=== PATIENT | male | born 1935 | race Caucasian/White ===

== ENCOUNTER 2020-08-11 09:15 | Emergency (ER) | payer OTHER, SELFPAY ==
--- NOTE | ~2020-08-11 | XR_ITS ---
EXAMINATION: XR shoulder RT min 2V INDICATION: Right shoulder pain TECHNIQUE: Five views of the right shoulder are submitted. COMPARISON: None FINDINGS: Normal alignment. No fracture. 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 Soft tissues are unremarkable. IMPRESSION: 1. No acute osseous abnormality. Reviewed, dictated and finalized at location A.
[2020-08-11 09:33] VITALS: BP 138/61; PULSE 72; RESP 14; TEMP 37.1; O2SAT 96
--- NOTE | 2020-08-11 10:03 | ED.GENADULT ---
HPI - General Adult General Chief complaint: Extremity Problem,Nontraumatic Stated complaint: right shoulder pain Time Seen by Provider: 08/11/20 09:30 Source: patient and RN notes reviewed Mode of arrival: ambulatory Limitations: no limitations History of Present Illness HPI narrative: 84-year-old male presents with complaints of right shoulder pain for the past 3-4 weeks. Neville reports increasing pain over the past 24 hours. Hydrocodone 5 mg without relief. Neville reports receiving hydrocodone per primary MD after treatment on 07/17/20. Denies numbness or tingling. No known injury. Hurts with movement of shoulder. Denies radiating pain. No loss of mobility. No swelling. Exacerbating factor is movement. No relieving factors. The dominant hand is the RIGHT HAND. No high fevers. Remains active. The patient reports he have not been diagnosed with COVID-19. The patient reports he is not waiting for the results of a COVID-19 lab test. The patient reports he do not have chills, weakness, or fatigue. The patient reports he do not have a new or worsening cough or shortness of breath. Denies chest pain. The patient reports he do not have any rhinorrhea, congestion, loss of taste or smell, sore throat, nausea, vomiting, abdominal pain, and diarrhea. Tolerating po intake well. Denies recent traveling. Denies concerns for COVID-19 or exposures been home with limited outdoor exposure except for essential household needs and return home. At this time, patient is not suspected of having COVID-19. Some parts of this dictation were generated by voice recognition software and may contain typographical and/or grammatical inaccuracies. Related Data Home Medications Medication Instructions Recorded Confirmed aspirin 81 mg tablet,delayed 81 mg PO DAILY 05/12/19 08/11/20 release Allergies Allergy/AdvReac Type Severity Reaction Status Date / Time No Known Allergies Allergy Unknown Verified 08/11/20 10:00 Review of Systems Review of Systems: Narrative: CONSTITUTIONAL: Denies fever, chills, sweats. EYES: Denies visual changes, redness, discharge. ENT: Denies rhinorrhea, congestion, sore throat, otalgia. CARDIOVASCULAR: Denies chest pain, palpitations, edema. RESPIRATORY: Denies dyspnea, wheezing, cough. GASTROINTESTINAL: Denies abdominal pain, nausea, vomiting, diarrhea. SKIN: Denies rash or itching. MUSCULOSKELETAL: Denies acute back pain or myalgia. Complains of RT shoulder pain. NEUROLOGIC: Denies numbness or focal weakness. PSYCHIATRIC: Denies anxiety or depression. All other systems reviewed & are unremarkable except as noted in HPI and below. [facility] Past Medical History Medical History (Updated 08/12/20 @ 00:00 by Bryant Nunez) Diabetes FH: total knee replacement Hyperbilirubinemia Hypertension Low vitamin B12 level Low vitamin D level Surgical History Surgical History History of tonsillectomy Family History Family History Mother Diabetes mellitus Father Family history of malignant neoplasm Social History Social History (Updated 08/17/20 @ 21:54 by LUISITO Pascual) Smoking packs per day: 1 Smoking cigarettes per day: 20.0 Years smoked: 33 Smoking pack-years: 33.00 Smoking status: Former smoker Tobacco type: cigarettes Second hand tobacco smoke exposure: No Smoking end date: 09/15/1960 Alcohol intake: current Drinks per week: 1 Substance use: never Living arrangements: with family Occupation/Education: retired Gender identity (if verbalized by the patient): Male Sexual Orientation (if Verbalized by the Patient): Straight or Heterosexual Comments At time of signature, agree with nurse past medical, surgical, social, and family history. There is no relevant patient or family history pertinent to the presenting complaint. Exam Narrat
== END 2020-08-11 10:35 | disposition home or self-care (01) ==
PROVIDERS: Emergency Provider Nurse Practitioner Family; PCP Family Medicine
DX: M25.511 Pain in right shoulder (principal); Z87.891 Personal history of nicotine dependence; E11.9 Type 2 diabetes mellitus without complications; I10 Essential (primary) hypertension; Z96.653 Presence of artificial knee joint, bilateral; E78.00 Pure hypercholesterolemia, unspecified
CPT/HCPCS: 73030; 99213; G0463

== ENCOUNTER 2020-08-21 12:34 | Emergency (ER) | payer OTHER, SELFPAY ==
--- NOTE | 2020-08-21 12:36 | ED.GENADULT ---
HPI - General Adult General Chief complaint: Ear Stated complaint: Eaer pain Time Seen by Provider: 08/21/20 12:36 Source: patient Mode of arrival: ambulatory Limitations: no limitations History of Present Illness HPI narrative: 84-year-old male patient presents to the [facility] with complaints of earwax. Patient states he went to go and get his hearing aids looked at today and was told that he had earwax in both ears. Patient denies any pain to the ears. Denies any drainage coming from the ears. Related Data Home Medications Medication Instructions Recorded Confirmed aspirin 81 mg tablet,delayed 81 mg PO DAILY 05/12/19 08/21/20 release Allergies Allergy/AdvReac Type Severity Reaction Status Date / Time No Known Allergies Allergy Unknown Verified 08/11/20 10:00 Review of Systems Review of Systems: Narrative: CONSTITUTIONAL: Denies fever, chills, or sweats. EYES: Denies visual changes, redness, or discharge. ENT: Denies rhinorrhea, congestion, sore throat, or otalgia. Positive earwax to bilateral ears CARDIOVASCULAR: Denies chest pain, palpitations, or edema. RESPIRATORY: Denies cough or dyspnea. GASTROINTESTINAL: Denies abdominal pain, nausea, vomiting, or diarrhea. GENITOURINARY: Denies dysuria or hematuria. SKIN: Denies rash or itching. MUSCULOSKELETAL: Denies back pain, joint pain, or myalgia. NEUROLOGIC: Denies headache, numbness, or weakness. PSYCHIATRIC: Denies anxiety or depression. [facility] Past Medical History Medical History Diabetes FH: total knee replacement Hyperbilirubinemia Hypertension Low vitamin B12 level Low vitamin D level Surgical History Surgical History History of tonsillectomy Family History Family History Mother Diabetes mellitus Father Family history of malignant neoplasm Social History Social History Smoking packs per day: 1 Smoking cigarettes per day: 20.0 Years smoked: 33 Smoking pack-years: 33.00 Smoking status: Former smoker Tobacco type: cigarettes Second hand tobacco smoke exposure: No Smoking end date: 09/15/1960 Alcohol intake: current Drinks per week: 1 Substance use: never Gender identity (if verbalized by the patient): Male Comments At the time of my signature I agree with nursing past medical history, surgical, social, and family history. There is no relevant family history pertinent to the presenting complaint. Exam Narrative: Exam Narrative: GENERAL: Well-appearing, well-nourished, and in no acute distress. HEAD: Normocephalic, atraumatic. EYES: PERRLA and EOMI. ENT: Nares clear, no rhinorrhea or epistaxis. Mucous membranes moist. Patient does have some impacted cerumen noted to the right ear however the left ear is clear and able to see the TM fine. The TM does not have any erythema there is no foreign bodies to the canal. NECK: Supple. No lymphadenopathy CHEST: Clear to auscultation. No respiratory distress. HEART: Regular rate and rhythm. No murmur heard. Normal peripheral pulses. ABDOMEN: Soft, nontender, nondistended, normal active bowel sounds. EXTREMITIES: Normal range of motion. No edema. SKIN: Warm, dry, no rash. NEURO: No focal deficits. Alert and oriented x3. Course Vital Signs Vital signs: Vital Signs Temperature 36.6 C 08/21/20 12:39 Pulse Rate 73 08/21/20 12:39 Respiratory Rate 18 08/21/20 12:39 Blood Pressure 134/61 08/21/20 12:39 Pulse Oximetry 97 08/21/20 12:39 Temperature 36.6 C 08/21/20 12:39 Pulse Rate 73 08/21/20 12:39 Respiratory Rate 18 08/21/20 12:39 Blood Pressure 134/61 08/21/20 12:39 Pulse Oximetry 97 08/21/20 12:39 Vital signs reviewed Procedures Ear Wax Removal Right Ear: Ear Wax Removal Date: 08/21/20 Ear Wax Rem
[2020-08-21 12:39] VITALS: BP 134/61; PULSE 73; RESP 18; TEMP 36.6; O2SAT 97
== END 2020-08-21 13:03 | disposition home or self-care (01) ==
PROVIDERS: Emergency Provider Nurse Practitioner Family; PCP Family Medicine
DX: H61.21 Impacted cerumen, right ear (principal); T16.1XXA Foreign body in right ear, initial encounter; Z87.891 Personal history of nicotine dependence; E11.9 Type 2 diabetes mellitus without complications; I10 Essential (primary) hypertension; Z79.82 Long term (current) use of aspirin
CPT/HCPCS: 69210; 69200; 99213; G0463

== ENCOUNTER 2021-02-10 09:17 | Emergency (ER) | payer OTHER, SELFPAY ==
--- NOTE | ~2021-02-10 | XR_ITS ---
EXAMINATION: XR foot LT min 3V EXAM DATE: 02/10/2021 09:54 INDICATION: Bumped On Bed X 1-2 Wks. Ago. Lower Leg Pain. . Initial encounter. TECHNIQUE: Left foot dorsoplantar, lateral and oblique projections obtained and reviewed. There is n o prior study for comparison. FINDINGS: Left metatarsal bones unremarkable. There are no acute fractures or dislocations identifi ed. There is no subcutaneous gas. Some vascular calcifications. Small inferior calcaneal spur. Mild polyarticular primary osteoarthritis. There are no radiopaque foreign bodies. IMPRESSION: Chronic left foot findings as above. Reviewed, dictated and finalized at location A.
--- NOTE | ~2021-02-10 | XR_ITS ---
EXAMINATION: XR tibia fibula LT 2V EXAM DATE: 02/10/2021 09:54 INDICATION: Bumped On Bed 1-2 Wks Ago. Lower Leg Pain. Initial encounter. TECHNIQUE: Left tibia/fibula frontal and lateral projections obtained and reviewed. There is no prio r study for comparison. FINDINGS: Left tibial and fibular shafts unremarkable. Mild vascular calcifications. There is left knee arthroplasty intact. Tibia and fibula are unremarkable. Mild scattered arterial sclerosis. There are no acute fractures identified. Sequela from prior medial malleolar avulsion injuries. IMPRESSION: Intact left knee arthroplasty. Reviewed, dictated and finalized at location A.
[2021-02-10 09:20] VITALS: BP 135/47; PULSE 89; RESP 18; TEMP 36.7; O2SAT 98
--- NOTE | 2021-02-10 09:43 | ED.GENADULT ---
HPI - General Adult General Chief complaint: Extremity Injury, Lower Stated complaint: bump on lt leg Source: patient Mode of arrival: ambulatory Limitations: no limitations History of Present Illness HPI narrative: Patient presents for evaluation of left leg pain. He indicates he bumped his leg against the bed frame 1 to 2 weeks ago. Has had some pain in the affected area since that time. At peak, pain was 8 out of 10 in severity, although he does not give me numerical rating for symptoms at the present time. Reports mild swelling in the left ankle. Pain is worse with weightbearing and walking. He attempted to place a topical patch in the affected area with some improvement in his symptoms thereafter. No additional complaints or concerns. Related Data Home Medications Medication Instructions Recorded Confirmed aspirin 81 mg tablet,delayed 81 mg PO DAILY 05/12/19 02/10/21 release Allergies Allergy/AdvReac Type Severity Reaction Status Date / Time No Known Allergies Allergy Unknown Verified 02/10/21 09:36 Review of Systems Review of Systems: CONSTITUTIONAL: Denies fever, chills, or sweats. EYES: Denies visual changes, redness, or discharge. ENT: Denies rhinorrhea, congestion, sore throat, or otalgia. CARDIOVASCULAR:Reports swelling to left ankle. Denies chest pain, palpitations RESPIRATORY: Denies cough or dyspnea. GASTROINTESTINAL: Denies abdominal pain, nausea, vomiting, or diarrhea. GENITOURINARY: Denies dysuria or hematuria. SKIN: Denies rash or itching. MUSCULOSKELETAL: Reports left leg pain and left foot pain. Denies back pain. NEUROLOGIC: Denies headache, numbness, dizziness, or weakness. PSYCHIATRIC: Denies anxiety or depression. [facility] Past Medical History Medical History (Updated 02/10/21 @ 10:37 by LUISITO Keating, SAMUEL) Diabetes FH: total knee replacement Hyperbilirubinemia Hypertension Low vitamin B12 level Low vitamin D level Surgical History Surgical History H/O left knee surgery History of tonsillectomy Family History Family History Mother Diabetes mellitus Father Family history of malignant neoplasm Social History Social History Smoking packs per day: 1 Smoking cigarettes per day: 20.0 Years smoked: 33 Smoking pack-years: 33.00 Smoking status: Former smoker Tobacco type: cigarettes Second hand tobacco smoke exposure: No Smoking end date: 09/15/1960 Alcohol intake: current Drinks per week: 1 Substance use: never Gender identity (if verbalized by the patient): Male Sexual Orientation (if Verbalized by the Patient): Straight or Heterosexual Exam Narrative: GENERAL: Well-appearing, well-nourished, and in no acute distress. HEAD: Normocephalic, atraumatic. EYES: PERRLA and EOMI. ENT: Nares clear, no rhinorrhea or epistaxis. Mucous membranes moist. Oropharynx without tonsillar hypertrophy exudate or other lesions. Bilateral TMs pearly julien nonbulging NECK: Supple. No adenopathy or masses. No carotid bruits or JVD CHEST: Clear to auscultation. No respiratory distress. No wheezes rales or rhonchi HEART: Regular rate and rhythm. No murmur heard. Normal peripheral pulses. ABDOMEN: Soft, nontender, nondistended, normal active bowel sounds. EXTREMITIES: Tenderness noted to anterior aspect of left lower leg and over dorsal aspect of proximal left foot. Normal range of motion. Trace nonpitting edema noted to left ankle SKIN: Mild ecchymosis to anterior aspect of distal left lower leg. Warm, dry, no rash. NEURO: No focal deficits. Alert and oriented x3. PSYCH: Normal mood and affect. Course Course Emergency Course: This 85-year-old male that presented with complaints of left lower leg pain. He also mentioned pain in the left foot. X-rays did not reveal presence of fracture. Erick
== END 2021-02-10 10:40 | disposition home or self-care (01) ==
PROVIDERS: Emergency Provider Nurse Practitioner; PCP Internal Medicine
DX: S80.12XA Contusion of left lower leg, initial encounter (principal); W22.03XA Walked into furniture, initial encounter; E11.9 Type 2 diabetes mellitus without complications; I10 Essential (primary) hypertension; Z79.82 Long term (current) use of aspirin; Z96.653 Presence of artificial knee joint, bilateral
CPT/HCPCS: 73590; 73630; 99214; G0463

== ENCOUNTER 2022-01-03 18:16 | Emergency (ER) | payer OTHER, SELFPAY ==
--- NOTE | ~2022-01-03 | XR_ITS ---
EXAMINATION: XR foot LT min 3V DATE: 01/03/2022 18:45 INDICATION: Left foot swelling. TECHNIQUE: 4 views of left foot were obtained. COMPARISON: Left foot radiographs 02/10/2021 FINDINGS: Bone alignment is normal. No fracture. There is mild osteoarthritis of first metatarsophala ngeal joint and some of the interphalangeal joints and midfoot joints. There is an enthesophyte at pl rte aspect of calcaneal tuberosity. There is soft tissue swelling of the foot. IMPRESSION: 1. Mild polyarticular osteoarthritis. Reviewed, dictated and finalized at location A.
[2022-01-03 18:22] VITALS: BP 138/48; PULSE 104; RESP 16; TEMP 36.9; O2SAT 98
[2022-01-03 18:38] VITALS: BP 138/48; PULSE 104; RESP 16; TEMP 36.9; O2SAT 98
--- NOTE | 2022-01-03 18:49 | ED.LOWEXIN ---
HPI - Extremity Injury (Lower) General Chief Complaint: Extremity Injury, Lower Stated Complaint: Swollen left foot Time Seen by Provider: 01/03/22 18:40 Source: patient, RN notes reviewed and old records reviewed Mode of arrival: ambulatory (uses cane to assist with ambulance) Limitations: no limitations History of Present Illness HPI Narrative: 86 year old male presents to [facility] with complaints of swelling to his left lower leg and foot for the past 2 weeks. He also states that he dropped his can on his left foot 2 days ago and he has noted bruising to the top of his 2nd, 3rd and 4th toe with edema to the dorsal aspect of his left foot. Patient has swelling pitting edema to the top of his left foot up to mid calf area, no warm or redness noted of his leg with no pain to his left calf area. Patient also does have some swelling to his right foot and lower leg but no pitting observed. Pedal pulses are palpable to bilateral feet, Patient denies any shortness of breath or any chest pain. MD complaint: foot injury (cane fell on his foot) and other (swelling of lefr lower leg and foot pitting with some swelling to right lower leg and foot nonpitting.) Onset (ago): week(s) (2 weeks swelling, 2 days injury to left foot) Type of Injury: blunt Severity scale (1-10): 2 Exacerbating factors: weight bearing and other (standing) Related Data Home Medications Medication Instructions Recorded Confirmed hydrochlorothiazide 25 mg tablet 25 mg PO DAILY 01/03/22 01/03/22 tamsulosin 0.4 mg capsule 0.4 mg PO DAILY 01/03/22 01/03/22 trazodone 50 mg tablet 50 mg PO HS 01/03/22 01/03/22 Allergies Allergy/AdvReac Type Severity Reaction Status Date / Time No Known Allergies Allergy Unknown Verified 01/03/22 18:36 Review of Systems Review of Systems: CONSTITUTIONAL: Denies fever, chills, or sweats. EYES: Denies visual changes, redness, or discharge. ENT: Denies rhinorrhea, congestion, sore throat, or otalgia. CARDIOVASCULAR: Denies chest pain, palpitations, positive for 2 weeks of increase swelling left lower leg and foot, with some swelling to right also RESPIRATORY: Denies cough or dyspnea. GASTROINTESTINAL: Denies abdominal pain, nausea, vomiting, or diarrhea. GENITOURINARY: Denies dysuria or hematuriaitting edema top of left foot SKIN: Denies rash or itching. bruising to 2nd, 3rd and 4th toe left foot and po MUSCULOSKELETAL: Denies back pain, joint pain, or myalgia. NEUROLOGIC: Denies headache, numbness, or weakness. PSYCHIATRIC: Denies anxiety or depression. All systems reviewed & are unremarkable except as noted in HPI and below PMFSH Past Medical History Medical History (Updated 01/04/22 @ 00:00 by Bryant Nunez) Diabetes FH: total knee replacement Hyperbilirubinemia Hypertension Low vitamin B12 level Low vitamin D level Surgical History Surgical History (Updated 01/05/22 @ 23:41 by Wanda Otero NP) H/O left knee surgery History of colon resection History of tonsillectomy Family History Family History Mother Diabetes mellitus Father Family history of malignant neoplasm Social History Social History Smoking packs per day: 1 Smoking cigarettes per day: 20.0 Years smoked: 33 Smoking pack-years: 33.00 Smoking status: Former smoker Tobacco type: cigarettes Second hand tobacco smoke exposure: No Smoking end date: 09/15/1960 Alcohol intake: current Drinks per week: 1 Substance use: never Gender identity (if verbalized by the patient): Male Sexual Orientation (if Verbalized by the Patient): Straight or Heterosexual Comments At time of signature, agree with nursing past medical, surgical, social and family history. There is no relevant family history pertinent to the presenting complaint Exam Narrative: GENERAL: Well-appearing, well-nourished, and in no acute distres
== END 2022-01-03 19:17 | disposition home or self-care (01) ==
PROVIDERS: Emergency Provider Registered Nurse
DX: S90.122A Contusion of left lesser toe(s) without damage to nail, initial encounter (principal); W20.8XXA Other cause of strike by thrown, projected or falling object, initial encounter; R60.0 Localized edema; Z87.891 Personal history of nicotine dependence; E11.9 Type 2 diabetes mellitus without complications; I10 Essential (primary) hypertension
CPT/HCPCS: 73630; 99213; G0463

== ENCOUNTER 2024-02-04 14:02 | Emergency (ER) | payer OTHER, SELFPAY ==
[2024-02-04 14:14] VITALS: PULSE 101; RESP 16; TEMP 36.4; O2SAT 98
[2024-02-04 14:22] VITALS: PULSE 101; RESP 16; TEMP 36.4; O2SAT 98
--- NOTE | 2024-02-04 14:31 | ED.URI ---
HPI - URI/Sore Throat General Chief Complaint: Upper Respiratory Infection Stated Complaint: Congestion/Headache Time Seen by Provider: 02/04/24 14:24 Source: patient and RN notes reviewed Mode of arrival: ambulatory Limitations: no limitations History of Present Illness HPI Narrative: Patient presents today he with his caregiver with complaints of mild headache and nasal congestion as well as mild sore throat. Symptoms began yesterday. Denies cough, fever, or any additional symptoms. No [id number] treatment prior to arrival. Related Data Home Medications Medication Instructions Recorded Confirmed hydrochlorothiazide 25 mg tablet 25 mg PO DAILY 01/03/22 02/04/24 tamsulosin 0.4 mg capsule 0.4 mg PO DAILY 01/03/22 02/04/24 trazodone 50 mg tablet 50 mg PO HS 01/03/22 02/04/24 donepezil 10 mg tablet 10 mg PO DAILY 02/04/24 02/04/24 Allergies Allergy/AdvReac Type Severity Reaction Status Date / Time No Known Allergies Allergy Unknown Verified 01/03/22 18:36 Review of Systems Review of Systems: CONSTITUTIONAL: Denies body aches, fever, chills, or sweats. EYES: Denies visual changes, redness, or discharge. ENT: Denies rhinorrhea, or otalgia.+ congestion, sore throat CARDIOVASCULAR: Denies chest pain, palpitations, or edema. RESPIRATORY: Denies cough or dyspnea. GASTROINTESTINAL: Denies abdominal pain, nausea, vomiting, or diarrhea. GENITOURINARY: Denies dysuria or hematuria. SKIN: Denies rash, itching, or wounds. MUSCULOSKELETAL: Denies back pain, joint pain, or myalgia. NEUROLOGIC: Denies numbness, tingling, or weakness.+ headache PSYCH: Denies depression or anxiety. [facility] Past Medical History Medical History Diabetes FH: total knee replacement Hyperbilirubinemia Hypertension Low vitamin B12 level Low vitamin D level Surgical History Surgical History H/O left knee surgery History of colon resection History of tonsillectomy Family History Family History Mother Diabetes mellitus Father Family history of malignant neoplasm Social History Social History Smoking packs per day: 1 Smoking cigarettes per day: 20.0 Years smoked: 33 Smoking pack-years: 33.00 Smoking status: Former smoker Tobacco type: cigarettes Second hand tobacco smoke exposure: No Smoking end date: 09/15/1960 Alcohol intake: current Drinks per week: 1 Substance use: never Living arrangements: with family Occupation/Education: retired Gender identity (if verbalized by the patient): Male Sexual Orientation (if Verbalized by the Patient): Straight or Heterosexual Comments At time of signature, I have reviewed and agree with nursing past medical, surgical, social and family history unless otherwise noted. Please see nursing chart for further information. There is no relevant family history pertinent to the presenting complaint Exam Narrative: GENERAL: Well-appearing, well-nourished, and in no acute distress. HEAD: Normocephalic, atraumatic. EYES: EOMI. No redness or drainage. Conjunctivae normal. ENT: Mucous membranes pink and moist. Nares clear. No rhinorrhea. TMs normal bilaterally. Throat erythematous. Uvula midline. NECK: Normal AROM. Supple. No lymphadenopathy. CHEST: No respiratory distress. Clear to auscultation. HEART: Regular rate and rhythm. No murmur appreciated. Normal peripheral pulses. EXTREMITIES: Normal range of motion. No edema. SKIN: Warm, dry, no rash. Capillary refill normal. Normal skin turgor. NEURO: No focal deficits. Alert and oriented x3. Gait steady. PSYCH: Normal affect. No signs of depression or anxiety. Course Course Level of Care: Express Care Visit Vital Signs Vital signs: Vital Signs Temperature 9
[2024-02-04 14:33] VITALS: BP 216/90
== END 2024-02-04 14:50 | disposition home or self-care (01) ==
PROVIDERS: Emergency Provider Nurse Practitioner; PCP Internal Medicine
DX: J06.9 Acute upper respiratory infection, unspecified (principal); Z87.891 Personal history of nicotine dependence; E11.9 Type 2 diabetes mellitus without complications; I10 Essential (primary) hypertension
CPT/HCPCS: 99211; G0463